=== PATIENT | male | born 1990 | race Caucasian/White ===

== ENCOUNTER 2022-08-31 12:53 | Emergency (ER) | payer SELFPAY ==
[2022-08-31] MEDS ORDERED: Diphtheria,Pertussis(Acell),Tetanus Vaccine 0.5 ML Syringe IM ONE (13:08)
[2022-08-31] MEDS ORDERED: cefTRIAXone 1 GM Vial IM STA (14:38)
[2022-08-31] MEDS ORDERED: Lidocaine 1% 5 ML VIAL ONE (14:44)
[2022-08-31] MEDS ORDERED: Lidocaine 1% 5 ML VIAL INJECT ONE (14:44)
== END 2022-08-31 15:07 | disposition home or self-care (01) ==
LOC: MW.ED 12:53
DX: S62.636B Displaced fracture of distal phalanx of right little finger, initial encounter for open fracture (principal); Z23 Encounter for immunization; Z72.0 Tobacco use; W22.09XA Striking against other stationary object, initial encounter; Y99.0 Civilian activity done for income or pay
CPT/HCPCS: 73140; 90471; 90715; 96372; 99283; J0696; J3490